=== PATIENT | female | born 1955 | race Caucasian/White ===

== ENCOUNTER 2025-08-06 10:27 | Inpatient (IN) | payer MEDICARE, OTHER ==
[2025-08-06] MEDS ORDERED: Dextrose 50% Abboject 50 ML SYRINGE SLOW IVP PRN (11:49)
[2025-08-06] MEDS ORDERED: Glucagon 1 MG/ML KIT IM PRN (11:49)
[2025-08-06] MEDS ORDERED: hydrALAZINE 20 MG/ML VIAL SLOW IVP PRN (11:49)
[2025-08-06 12:12] VITALS: BMI 29.5
[2025-08-06] MEDS: Ondansetron PF 4 MG/2 ML Vial ONE (12:42)
[2025-08-06] MEDS: Melatonin 3 MG TAB PO SCH (21:03)
[2025-08-06] MEDS: Senokot S 8.6-50 MG TAB PO SCH (21:03)
[2025-08-06] MEDS: Methocarbamol 500 MG TAB PO PRN (21:03)
[2025-08-07] MEDS: Phenol 177 ML BOT PO PRN (01:40)
[2025-08-07 06:51] LABS: #Basophils 0.04 10x3/uL (0.0-0.2); #Eosinophils 0.18 10x3/uL (0.0-0.7); #Monocytes 0.93 10x3/uL (0.11-0.59); #Neutrophils 6.43 10x3/uL (1.40-6.50); %Basophils 0.5 % (0.0-1.0); %Eosinophils 2.1 % (0.0-10.0); %Lymphocytes 12.4 % (21.0-51.0); %Monocytes 10.7 % (0.0-10.0); %Neutrophils 74.0 % (42.0-75.0); Hematocrit 40.4 % (36.0-47.0); Hemoglobin 13.0 g/dL (12.0-16.0); Mean Corpuscular Hemoglobin 33.0 pg (27.0-31.0); Mean Corpuscular Volume 102.5 fL (78.0-98.0); Platelet Count 336 10x3/uL (130-400); Red Blood Cell (RBC) Count 3.94 mill/uL (4.20-5.40); White Blood Cell (WBC) Count 8.69 10x3/uL (4.8-10.8)
[2025-08-07 07:05] LABS: ALT (SGPT) 96 U/L (Less than 34); AST (SGOT) 60 U/L (11-34); Albumin 3.1 g/dL (3.1-4.5); Alkaline Phosphatase 249 U/L (40-110); Anion Gap 15 mmol/L (10-20); BUN (Urea Nitrogen) 12 mg/dL (9.8-20.1); Bilirubin, Total 0.6 mg/dL (0.3-1.2); Calc. Creatinine Clearance 101 mL/min (70-130); Calcium 9.1 mg/dL (7.8-10.44); Carbon Dioxide 25 mmol/L (23-31); Chloride 105 mmol/L (98-107); Globulin 3.3 g/dL (2.4-3.5); Glucose 99 mg/dL (83-110); Potassium 3.6 mmol/L (3.5-5.1); Sodium 141 mmol/L (136-145)
[2025-08-07] MEDS: Pantoprazole 40 MG VIAL IVP SCH (09:11)
[2025-08-07] MEDS: Ondansetron PF 4 MG/2 ML Vial IVP PRN (09:25)
[2025-08-07] MEDS ORDERED: Benzocaine/Menthol 1 LOZ LOZ PO PRN (17:08)
[2025-08-07] MEDS: Benzocaine/Menthol 1 LOZ LOZ PO SCH (17:50)
[2025-08-08] MEDS: Acetaminophen 325 MG TAB PO PRN (03:38)
[2025-08-08] MEDS: Floranex 1 GM Packet PO SCH (05:01)
[2025-08-08 06:54] LABS: #Basophils 0.07 10x3/uL (0.0-0.2); #Eosinophils 0.36 10x3/uL (0.0-0.7); #Monocytes 0.80 10x3/uL (0.11-0.59); #Neutrophils 6.14 10x3/uL (1.40-6.50); %Basophils 0.8 % (0.0-1.0); %Eosinophils 4.1 % (0.0-10.0); %Lymphocytes 15.3 % (21.0-51.0); %Monocytes 9.1 % (0.0-10.0); %Neutrophils 70.2 % (42.0-75.0); Hematocrit 37.4 % (36.0-47.0); Hemoglobin 12.5 g/dL (12.0-16.0); Mean Corpuscular Hemoglobin 33.6 pg (27.0-31.0); Mean Corpuscular Volume 100.5 fL (78.0-98.0); Platelet Count 335 10x3/uL (130-400); Red Blood Cell (RBC) Count 3.72 mill/uL (4.20-5.40); White Blood Cell (WBC) Count 8.75 10x3/uL (4.8-10.8)
[2025-08-08 07:09] LABS: ALT (SGPT) 71 U/L (Less than 34); AST (SGOT) 40 U/L (11-34); Albumin 2.8 g/dL (3.1-4.5); Alkaline Phosphatase 218 U/L (40-110); Anion Gap 13 mmol/L (10-20); BUN (Urea Nitrogen) 14 mg/dL (9.8-20.1); Bilirubin, Total 0.4 mg/dL (0.3-1.2); Calc. Creatinine Clearance 112 mL/min (70-130); Calcium 8.7 mg/dL (7.8-10.44); Carbon Dioxide 26 mmol/L (23-31); Chloride 106 mmol/L (98-107); Globulin 3.2 g/dL (2.4-3.5); Glucose 81 mg/dL (83-110); Potassium 3.3 mmol/L (3.5-5.1); Sodium 142 mmol/L (136-145)
[2025-08-08] MEDS: Losartan 25 MG TAB PO SCH ×2 (12:07→12:17)
[2025-08-08] MEDS: Pantoprazole 40 MG DR.TAB PO SCH (12:08)
[2025-08-08] MEDS: Ezetimibe 10 MG TAB PO SCH (12:08)
[2025-08-08] MEDS: Isosorbide Mononitrate 30 MG ER.TAB.S PO SCH (12:21)
[2025-08-09 04:24] LABS: #Basophils 0.05 10x3/uL (0.0-0.2); #Eosinophils 0.30 10x3/uL (0.0-0.7); #Monocytes 0.86 10x3/uL (0.11-0.59); #Neutrophils 6.95 10x3/uL (1.40-6.50); %Basophils 0.5 % (0.0-1.0); %Eosinophils 3.2 % (0.0-10.0); %Lymphocytes 13.7 % (21.0-51.0); %Monocytes 9.1 % (0.0-10.0); %Neutrophils 73.2 % (42.0-75.0); Hematocrit 32.1 % (36.0-47.0); Hemoglobin 10.9 g/dL (12.0-16.0); Mean Corpuscular Hemoglobin 34.0 pg (27.0-31.0); Mean Corpuscular Volume 100.0 fL (78.0-98.0); Platelet Count 319 10x3/uL (130-400); Red Blood Cell (RBC) Count 3.21 mill/uL (4.20-5.40); White Blood Cell (WBC) Count 9.49 10x3/uL (4.8-10.8)
[2025-08-09 04:42] LABS: ALT (SGPT) 51 U/L (Less than 34); AST (SGOT) 28 U/L (11-34); Albumin 2.7 g/dL (3.1-4.5); Alkaline Phosphatase 178 U/L (40-110); Anion Gap 11 mmol/L (10-20); BUN (Urea Nitrogen) 8 mg/dL (9.8-20.1); Bilirubin, Total 0.4 mg/dL (0.3-1.2); Calc. Creatinine Clearance 121 mL/min (70-130); Calcium 8.5 mg/dL (7.8-10.44); Carbon Dioxide 25 mmol/L (23-31); Chloride 104 mmol/L (98-107); Globulin 3.0 g/dL (2.4-3.5); Glucose 94 mg/dL (83-110); Potassium 3.1 mmol/L (3.5-5.1); Sodium 137 mmol/L (136-145)
[2025-08-09] MEDS: Potassium Chloride 20 MEQ in Premix 1 BAG IVPB SCH (06:49)
[2025-08-09] MEDS ORDERED: PHOS-NAK 1 PKT PACK PO PRN (07:30)
[2025-08-09] MEDS ORDERED: Potassium Chloride 20 MEQ in Premix 1 BAG IVPB PRN (07:30)
[2025-08-09] MEDS ORDERED: Magnesium 2 GM/50 ML(in water) 2 GM in Premix 1 BAG IVPB PRN (07:30)
[2025-08-09] MEDS: Ezetimibe 10 MG TAB PO SCH (08:05)
[2025-08-09] MEDS: Isosorbide Mononitrate 30 MG ER.TAB.S PO SCH (08:06)
[2025-08-09] MEDS: Heparin 5,000 UNITS/ML VIAL SC SCH (08:08)
[2025-08-09] MEDS ORDERED: Lisinopril 10 MG TAB PO SCH (09:00)
[2025-08-09] MEDS: Pantoprazole 40 MG DR.TAB PO SCH (09:55)
[2025-08-09 11:55] VITALS: BP 112/59; TEMP 97.9
[2025-08-09 12:54] LABS: Potassium 3.7 mmol/L (3.5-5.1)
== END 2025-08-09 15:40 | disposition home or self-care (01) | DRG 392 ==
LOC: SURG B 10:27
PROVIDERS: ADMIT Surgery; ATTEND Surgery
PROC: 3E03329 Introduction of Other Anti-infective into Peripheral Vein, Percutaneous Approach (ICD-10-PCS; 2025-08-06)
PROC: 05HY33Z Insertion of Infusion Device into Upper Vein, Percutaneous Approach (ICD-10-PCS; principal; 2025-08-08)
DX: K57.20 Diverticulitis of large intestine with perforation and abscess without bleeding (principal); K56.699 Other intestinal obstruction unspecified as to partial versus complete obstruction; I25.10 Atherosclerotic heart disease of native coronary artery without angina pectoris; I10 Essential (primary) hypertension; Z91.048 Other nonmedicinal substance allergy status; Z88.5 Allergy status to narcotic agent; Z95.5 Presence of coronary angioplasty implant and graft; E03.9 Hypothyroidism, unspecified; K21.9 Gastro-esophageal reflux disease without esophagitis; Z79.890 Hormone replacement therapy; Z90.49 Acquired absence of other specified parts of digestive tract; Z87.891 Personal history of nicotine dependence; Z90.710 Acquired absence of both cervix and uterus; R74.01 Elevation of levels of liver transaminase levels; D75.89 Other specified diseases of blood and blood-forming organs; K59.09 Other constipation; Z98.890 Other specified postprocedural states
CPT/HCPCS: 36415; 74018; 80053; 85025; J1335; J1644; J2060; J2270; J2405; J2470; J2543; J3480; J7120